=== PATIENT | female | born 1950 | race Caucasian/White ===

== ENCOUNTER 2017-07-14 17:31 | Emergency (ER) | payer OTHER ==
[~2017-07-14] VITALS: Ht 157.5 cm; Wt 67.9 kg
[~2017-07-14 17:31] MED LIST: ALBU1.25 NEB; ALBU8I INH; HYDR12.56 PO; LOVA20TA PO; MOTI25CH PO; OMEP20TA39 PO; ST J81CH PO; ZOFR4TAB3 PO
[2017-07-14 17:32] VITALS: BP 177/79; PULSE 76; RESP 16; TEMP 98; O2SAT 93
[2017-07-14] MEDS ORDERED: ALBUAER3 INH (17:49)
[2017-07-14] MEDS ORDERED: LOVA20TA PO (17:49)
--- NOTE | 2017-07-14 17:57 | PD ---
HPI Chief Complaint: Musculoskeletal Complaint Time Seen by Provider: 17:38 Travel History International Travel<30 days: No Contact w/Intl Traveler<30days: No Traveled to known affect area: No History of Present Illness HPI 67-year-old female presents to emergency department with complaint of right foot pain, specifically the right fourth toe, after hitting it on the couch last night. Reports paresthesias that come and goes, otherwise denies loss of sensation to the affected extremity. Has been ambulatory on the affected extremity. Has been taking Tylenol for symptom management with some relief. Rates pain 8/10. Worse with palpation, ambulation, pressure. Better at rest. Dr. Snyder is primary care provider. No known allergies. History of COPD. Has no other medical complaints. No other modifying factors or associated signs and symptoms. PFSH Past Medical History Hx Anticoagulant Therapy: Yes (BABY ASA DAILY) Cardiovascular Problems: Yes (CHOL) High Cholesterol: Yes COPD: Yes Diabetes: No Diminished Hearing: No Hypertension: Yes Respiratory: Yes (COPD) Tetanus Vaccination: > 5 Years Influenza Vaccination: Yes ?: Not Past Surgical History Surgical History: No Previous Surgery Social History Alcohol Use: No Tobacco Use: Yes (1 ppd) Substance Use: No Allergies-Medications (Allergen,Severity, Reaction): Coded Allergies: No Known Allergies (Unverified Adverse Reaction, Unknown, 07/14/17) Reported Meds & Prescriptions Reported Meds & Active Scripts Active Reported Proair Hfa 8.5 GM Inh (Albuterol Sulfate) 90 Mcg/Act Aer 2 Puff INH Q4-6H PRN 108 mcg/actuation Lovastatin 20 Mg Tab 20 Mg PO DAILY Review of Systems Except as stated in HPI: all other systems reviewed are Neg Physical Exam Narrative GENERAL: Well-nourished, well-developed female patient, in no acute distress SKIN: Warm and dry. HEAD: Atraumatic. Normocephalic. EYES: Pupils equal and round. No scleral icterus. No injection or drainage. ENT: Mucosa pink and moist. Airway patent. NECK: Trachea midline. CARDIOVASCULAR: Regular rate. RESPIRATORY: No accessory muscle use. GASTROINTESTINAL: Rounded. MUSCULOSKELETAL: Dorsal aspect of right foot just below the third, fourth, fifth toes with area of ecchymosis and tenderness on palpation; fourth toe is without obvious deformity and is with ecchymosis and minimal edema and tenderness on palpation; sensory intact to all toes; 2+ pedal pulse; no open wounds; leg is supple and nontense. no obvious deformities. No clubbing. No cyanosis. No edema. NEUROLOGICAL: Awake and alert. Oriented 3. No obvious cranial nerve deficits. Motor grossly within normal limits. Normal speech. PSYCHIATRIC: Appropriate mood and affect; insight and judgment normal. Data Data Last Documented VS Vital Signs Date Time Temp Pulse Resp B/P (MAP) Pulse Ox O2 Delivery O2 Flow Rate FiO2 07/14/17 17:43 18 07/14/17 17:32 98.0 76 177/79 (111) 93 Orders Orders Foot, Complete (Eel2vsm) (07/14/17 17:54) [facility] Medical Decision Making Medical Screen Exam Complete: Yes Emergency Medical Condition: Yes Medical Record Reviewed: Yes Differential Diagnosis Toe fracture, metatarsal fracture, contusion, sprain Narrative Course 67-year-old female with right foot injury. I offered the patient pain medication and she declined. Right foot x-ray ordered. 1819: Right foot x-ray concluded: Foot X-Ray 07/14/171753 Signed Impressions: CONCLUSION: Oblique fracture through the fourth proximal phalanx. Discussed x-ray findings with the patient. Toe is jaquelin taped together and postop shoe provided for support. Prescription for a walker provided for support. Ibuprofen prescribed for home. Instructed patient to follow up with primary care provider. Patient verbalizes understanding and agreement with treatment plan. Patient is medically cleared and stable for discharge. Discussed reasons to return to the emergency department. Patient agrees with treatment plan. The patients vital signs are stable and the patient is stable for outpatient follow-up and treatment. Patient discharged home, stable and in no acute distress. Diagnosis Primary Impression: Toe fracture, right Qualified Codes: S92.514A - Nondisplaced fracture of proximal phalanx of right lesser toe(s), initial encounter for closed fracture Referrals: Primary Care Physician Patient Instructions: General Instructions, Toe Fracture (ED) Additional Instructions: Ibuprofen and/or Tylenol as directed and as needed for pain/inflammation Ice to affected area to decrease pain and inflammation Keep toe jaquelin taped to next toe over for support; change tape as needed Ezequiel bandage as needed for compression and support Walker/cane as needed for support Postop boot as needed for support Follow-up with primary care provider Return to the emergency department immediately if worsening of symptoms Med/Other Pt SpecificInfo: Prescription(s) given Scripts Walker/Adult/Folding (Walker/Adult/Folding) 1 Mis Mis EA .XX DIRECTED, #1 0 Refills Prov: Catherine Andres 07/14/17 Ibuprofen (Ibuprofen) 600 Mg Tab 600 MG PO Q6H Y for PAIN, #20 TAB 0 Refills Prov: Catherine Andres 07/14/17 Disposition: 01 DISCHARGE HOME Condition: Stable Catherine Andres Jul 14, 2017 17:57
--- NOTE | 2017-07-14 18:15 | RADRPT ---
EXAM DATE: 07/14/2017 6:07 PM EDT AGE/SEX: 67 years / Female INDICATIONS: Right foot, third to fifth distal metatarsal pain post running into couch. CLINICAL DATA: This is the patient's initial encounter. Patient reports that signs and symptoms have been present for 2 days and indicates a pain score of 8/10. MEDICAL/SURGICAL HISTORY: Chronic obstructive pulmonary disease. None. COMPARISON: No prior exams available for comparison. FINDINGS: There is an oblique fracture through the fourth proximal phalanx. This extends to the PIP joint. Sign ificant displacement is not seen. No other fracture is seen. There is a prominent calcaneal spur at t he plantar aponeurosis attachment site. CONCLUSION: Oblique fracture through the fourth proximal phalanx. Electronically signed by: Adolfo Fernández MD 07/14/2017 6:14 PM EDT
[2017-07-14] MEDS ORDERED: IBUP-232 PO (18:22)
[2017-07-14] MEDS ORDERED: WALKER/ADULT/FO1 MIS (18:24)
[2017-07-14 18:41] VITALS: BP 140/77
== END 2017-07-14 18:42 | disposition home or self-care (01) ==
LOC: PHEFT 17:31
DX: S92.514A Nondisplaced fracture of proximal phalanx of right lesser toe(s), initial encounter for closed fracture (principal); W22.03XA Walked into furniture, initial encounter; R20.2 Paresthesia of skin; J44.9 Chronic obstructive pulmonary disease, unspecified; E78.00 Pure hypercholesterolemia, unspecified; I10 Essential (primary) hypertension; F17.200 Nicotine dependence, unspecified, uncomplicated; Z79.82 Long term (current) use of aspirin
CPT/HCPCS: 73630; 99283; L3260